=== PATIENT | female | born 1960 | race Caucasian/White ===

== ENCOUNTER → 2020-04-28 15:19 | Outpatient (CLI) | payer BC, SELFPAY ==
--- NOTE | ~2020-04-28 | MM_ITS ---
EXAMINATION: MM screening vidal BI w todd HISTORY: Screening TECHNIQUE: Craniocaudal and mediolateral oblique 3-D tomosynthesis images were obtained and synthetic 2-D images were generated. CAD analysis was submitted and interpreted. COMPARISON: Comparison to multiple prior studies sequentially, with oldest reviewed study dated 07/2015. BREAST PARENCHYMAL COMPOSITION: There are scattered areas of fibroglandular density. FINDINGS: There is no evidence of suspicious mass, calcification, or architectural distortion to sugg est malignancy in either breast. There has been no suspicious interval change. IMPRESSION: 1. No mammographic evidence of malignancy. 2. Recommend routine screening mammography in one year. BI-RADS Category 1: Negative Reviewed, dictated and finalized at location A. WORK AIDE
== END ==
PROVIDERS: PCP Internal Medicine; Visit Provider Obstetrics & Gynecology
DX: Z12.31 Encounter for screening mammogram for malignant neoplasm of breast (principal)
CPT/HCPCS: 77063; 77067

== ENCOUNTER → 2021-04-30 10:21 | Outpatient (CLI) | payer BC, SELFPAY ==
--- NOTE | ~2021-04-30 | MM_ITS ---
EXAMINATION: MM screening vidal BI w todd HISTORY: Screening TECHNIQUE: Craniocaudal and mediolateral oblique 3-D tomosynthesis images were obtained and synthetic 2-D images were generated. CAD analysis was submitted and interpreted. COMPARISON: Comparison to multiple prior studies sequentially, with oldest reviewed study dated 02/02. BREAST PARENCHYMAL COMPOSITION: There are scattered areas of fibroglandular density. FINDINGS: There is no evidence of suspicious mass, calcification, or architectural distortion to sugg est malignancy in either breast. There has been no suspicious interval change. IMPRESSION: 1. No mammographic evidence of malignancy. 2. Recommend routine screening mammography in one year. BI-RADS Category 1: Negative Reviewed, dictated and finalized at location A.
== END ==
PROVIDERS: Visit Provider Obstetrics & Gynecology
DX: Z12.31 Encounter for screening mammogram for malignant neoplasm of breast (principal)
CPT/HCPCS: 77063; 77067

== ENCOUNTER → 2021-06-08 10:58 | Outpatient (CLI) | payer BC, SELFPAY ==
--- NOTE | ~2021-06-08 | MR_ITS ---
EXAMINATION: MR brain/brain stem wo/w con EXAM DATE: 06/08/2021 11:47 INDICATION: G43.909 - Migraine, unspecified, not intractable, without.... Dizziness. TECHNIQUE: Magnetic resonance imaging (MRI) of the brain/brain stem obtained without contrast. Sagit damon T1, axial diffusion, gradient echo (T2*), T1, T2, FLAIR sequences obtained. Patient was then inj ected with 13 cc intravenous Multihance contrast. Axial and coronal postcontrast T1 weighted sequence s obtained. There is no prior study for comparison. FINDINGS: There are no areas of restricted diffusion to suggest acute infarction. There is no acute hemorrhage seen on the T2*, a hemosiderin sensitive sequence. No intraparenchymal brain mass. The ve ntricles are normal in size. There are no extra-axial collections. Flow voids are seen in the cereb ral arteries on the T2-weighted sequences consistent with their expected patency. The orbits are unr emarkable. Soft tissue is unremarkable. IMPRESSION: 1. No acute intracranial findings. Reviewed, dictated and finalized at location B. WEIGHER
[2021-06-08 11:21] LABS: Estimated Glomerular Filt Rate > 60
== END ==
PROVIDERS: PCP Internal Medicine; Visit Provider Clinical Nurse Specialist
DX: G43.909 Migraine, unspecified, not intractable, without status migrainosus (principal)
CPT/HCPCS: 70553; A9577

== ENCOUNTER 2021-07-14 13:27 | Outpatient (CLI) | payer BC, SELFPAY ==
--- NOTE | 2021-07-14 13:48 | ECHO_ITS ---
Patient Info Name: Kat Mcgill Age: 61 years : 1960 Gender: Female Ht: 65 in Wt: 145 lbs BSA: 1.75 m2 HR: 78 bpm BP: 140 / 81 mmHg Technical Quality: Good Exam Date: 07/14/2021 2:11 PM Exam Location: [facility] Patient Status: Outpatient Admit Date: 07/14/2021 Staff Ordering Physician: Rita Mart NP Capacitor Repairer: Anali Parks RDCS Attending Provider: Rita Mart NP Referring Physician: Brittny WEST; Exam Type: CA echo doppler color flow Study Info Indications - DIZZINESS AND GIDDINESS Complete two-dimensional, color flow and Doppler transthoracic echocardiogram is performed. Summary 1. Complete two-dimensional, color flow and Doppler transthoracic echocardiogram is performed. 2. Left ventricular chamber dimension is normal. 3. Left ventricular systolic function is normal, estimated at 60-65%. 4. The left ventricular diastolic function is grade I diastolic dysfunction. 5. Left atrial chamber dimension is mildly enlarged. 6. There is trace tricuspid valve regurgitation. 7. No pulmonary hypertension, estimated pulmonary arterial systolic pressure is 30 mmHg. Left Ventricle Tissue doppler is not performed. Left ventricular chamber dimension is normal. Left ventricular systolic function is normal, estimated at 60-65%. The left ventricular diastolic function is grade I diastolic dysfunction. Right Ventricle Right ventricular chamber dimension is normal. Right ventricular systolic function is normal. Left Atria Left atrial chamber dimension is mildly enlarged. Right Atria Right atrial chamber dimension is normal. Aortic Valve The aortic valve is trileaflet. There is no aortic valve stenosis. There is no aortic valve regurgitation. Pulmonic Valve There is no pulmonic regurgitation. Mitral Valve There is no mitral valve stenosis. There is no mitral valve regurgitation. Tricuspid Valve There is trace tricuspid valve regurgitation. No pulmonary hypertension, estimated pulmonary arterial systolic pressure is 30 mmHg. Pericardium/Pleural There is no pericardial effusion. Inferior Vena Cava Normal inferior vena cava with >50% collapse upon inspiration consistent with normal right atrial pressure, 5 mmHg. Aorta The aortic root size at the sinus of Valsalva is normal. Left Ventricular Outflow Tract Name Value Normal LVOT 2D LVOT Diameter 2.0 cm LVOT Doppler LVOT Peak Gradient 7 mmHg LVOT Mean Gradient 3 mmHg LVOT VTI 26 cm LVOT VTI/AV VTI Ratio 0.9 LVOT Stroke Volume 81 ml LVOT CO 15.7 l/min LVOT CI 9.0 l/min/m2 Pulmonic Valve Name Value Normal PV Doppler PV Peak Gradient
== END 2021-07-14 13:28 | disposition home or self-care (01) ==
LOC: ANHCARD 13:28
PROVIDERS: PCP Internal Medicine; Visit Provider Nurse Practitioner
DX: R42 Dizziness and giddiness (principal)
CPT/HCPCS: 93306

== ENCOUNTER 2021-09-23 08:00 | Outpatient (RCR) | payer BC, SELFPAY ==
--- NOTE | 2021-08-18 09:53 | PTOPEVAL ---
PHYSICAL THERAPY EVALUATION AND PLAN OF CARE 08-18-21 Thank you for referring Kat Mcgill to [facility] for the diagnosis of dizziness. The evaluation was completed and education provided. She no longer has any dizziness at this time. Her plan of treatment is for 0-2x/wk for 4 weeks.? Kat is to call if she has any further questions, or if dizziness returns, to call for a treatment appointment. Please review, sign, date and return this plan of care PRANEETH. I agree with and certify that the following plan of care is medically necessary. Referring Physician Date Attending Provider: Rita Mart NP Document 08/18/21 09:10 RAYO (Rec: 08/18/21 09:52 RAYO [id number]) Past Medical History Source of Past Medical History Patient Neurological History Hx Migraine Yes: about once every 3 months ; decreased Cardiovascular History Hx Cardiac Disorders No Significant History Respiratory History Hx Respiratory Disorders No Significant History Gastrointestinal History Hx Gastrointestinal Disorders No Significant History Genitourinary History Hx Genitourinary Disorders No Significant History Musculoskeletal History Hx Musculoskeletal Disorders No Significant History Endocrine History Hx Endocrine Disorders No Significant History Reproductive History Hx Reproductive Disorders No Significant History Evaluation Information Problem Diagnosis dizziness Onset Apr 2021 Prior Level of Function Activity Level (Last 3 Months) Occupation retired Activity of Daily Living Ability Independent Indoor/Home Mobility Independent Community Mobility Independent Stairs Ability Independent Functional Cognition (Planning, Shopping Independent , Taking Medications) Cooking Yes Cleaning Yes Laundry Yes Shopping Yes Driving Yes Comments Additional Prior Level of Function active lifestyle, care for Comments grandchildren--2, 7,10,11 yr old; Pain Assessment Timing of Pain Assessment Assessment Self Report Self Report Pain Level 0 Pain Score Pain Score 0: Self Report Cervical ROM Comments active cervical ROM is WNL and no pain reported Standing Position Posture Evaluation View Posterior Head/C-Spine Posture Forward Head Lumbar Spine Posture Neutral Shoulder Posture (L) Rounded,(R) Rounded Additional Posture Comments educated on correct posture of neck and shoulders in sitting, standing and with readi
--- NOTE | 2021-09-15 11:58 | PCPTNOTE ---
pt called and I discussed with her on the phone: she had dizziness and performed the To Daroff yesterday and it helped, and did once today. Discussed with her to do again today and tomorrow, if still having issues, call Fri to get an appointment to come in for further treatment. Her plan of care is up today, but will keep her chart open for any needs for the next 2 weeks.
--- NOTE | 2021-09-23 08:47 | PTOPEVAL ---
PHYSICAL THERAPY REEVALUATION AND UPDATED PLAN OF CARE 09-23-21 Refer to the clinical summary below, for a summary of her status with today's reeval. Continue PT treatment 0-2x/wk for 4 weeks, depending upon the severity of her vestibular symptoms. Thank you for referring Kat Mcgill to [facility].? Please review, sign, date and return this updated plan of care [facility]. I agree with and certify that the following plan of care is medically necessary. Referring Physician Date Attending Provider: Rita Mart NP Subjective Information Kat reports: have not had Query Text:As Reported By Patient/ any migraine headaches for the Family past 3 weeks, but when have had them, wake up in the morning with it; have been doing the exercise at home; feel little dizzy and unsteady , but not really bad; feeling OK this morning; some frustration about it coming and going and not sure why; Pain Assessment Timing of Pain Assessment Timing of Pain Assessment Assessment Self Report Self Report Pain Level 0 Pain Score Pain Score 0: Self Report Vestibular Testing Smooth Pursuits Normal [place]-Hallpike Left WNL Parveen-Hallpike Right WNL Horizontal Roll Test in Supine Left WNL Horizontal Roll Test in Supine Right WNL Vestibular Testing Comments -standing visual testin reps without s/s - gaze stabilization with head up/down and R/L -2 items ~ 24 apart, eyes only R/L and up/down, and head and eye motion R/L and up/ down - walking towards X on wall, with eyes stable- forward and backwards ~ 5 steps -convergence of eyes normal - pick item up off floor x1 - 360' turn to R and L 1x -single leg standing R and L x 30 sec - heel toe walking 20' forward and backwards - walking 50': head turn R/L and up/down; holding ball in both hands with head still/ eyes track & head and eye motions: R/L & up down - sitting: eye tracking,
--- NOTE | 2021-10-28 15:12 | PCPTNOTE ---
PHYSICAL THERAPY DISCHARGE 10-28-21 Attending Provider: Rita Mart NP Patient:Kat Mcgill Date of :1960 Kat has not returned for any further treatments since the reevaluation on 09/23/2021, therefore she will be discharged at this time. Refer to the reeval for her status at the last session. The goals were not assessed. Thank you for referring Kat to [facility]. Please review, sign, date and return this discharge summary PRANEETH. I have been updated about the patient's current status and I agree with discharge from the above service at this time. Referring Physician Date
== END 2021-10-29 10:34 | disposition home or self-care (01) ==
LOC: ANHPT 08:00
PROVIDERS: PCP Internal Medicine; Visit Provider Nurse Practitioner
DX: R42 Dizziness and giddiness (principal)
CPT/HCPCS: 97161; 97530

== ENCOUNTER → 2022-05-11 10:20 | Outpatient (CLI) | payer BC, SELFPAY ==
--- NOTE | ~2022-05-11 | DEXA_ITS ---
Bone Density Report Name: JAYLAN FELIZ Age: 62 Sex: Female Ethnicity: White Date of : 1960 Indication: postmenopausal; screening for osteoporosis; height loss; Referring Provider: NAVJOT, GRACE Study: Bone densitometry was performed. Exam Date: May 11, 2022 Accession number: [id number] Bone Density: Region BMD T-score Z-score Classification AP Spine (L1-L4) 1.027 -0.2 1.2 Normal Femoral Neck (Left) 0.786 -0.6 0.7 Normal Total Hip (Left) 0.933 -0.1 0.9 Normal Femoral Neck (Right) 0.839 -0.1 1.2 Normal Total Hip (Right) 0.934 -0.1 0.9 Normal Total Hip Mean 0.934 -0.1 0.9 Normal World Health Organization criteria for BMD impression classify patients as: Normal (T-score at or above -1.0), Osteopenia (T-score between -1.0 and -2.5), or Osteoporosis (T-score at or below -2.5). 10-year Fracture Risk: FRAX not reported because: All T-scores for Spine Total, Hip Total, Femoral Neck at or above -1.0 Previous Exams: Region Exam Age BMD T-score BMD Change BMD Change Date g/cm2 vs Baseline vs Previous AP Spine(L1-L4) 05/11/2022 62 1.027 -0.2 -0.081* -0.042* 02/02/2017 56 1.069 0.2 -0.038* -0.038* 12/03/2011 51 1.107 0.5 Total Hip(Left) 05/11/2022 62 0.933 -0.1 -0.100* -0.033* 02/02/2017 56 0.966 0.2 -0.068* -0.068* 12/03/2011 51 1.033 0.7 Total Hip(Right) 05/11/2022 62 0.934 -0.1 -0.078* -0.022 02/02/2017 56 0.956 0.1 -0.056* -0.056* 12/03/2011 51 1.012 0.6 *Denotes significance at 95% confidence level, LSC for AP Spine = 0.022 g/cm2, LSC for Total Hip = 0.027 g/cm2 Clinical Information Provided by Patient: Has used the following medications: Vitamin D Patient maximum height was 66 Menopause Age: 50 Drinks caffeinated beverages Onset of menses at age 15 Number of children 3 Impression: The patient has normal bone mass. The BMD for the AP Spine(L1-L4) decreased, changing by -0.042 since the last DXA exam. The BMD for the Total Hip(Left) decreased, changing by -0.033 since the last DXA exam. Discussion: BONE DENSITY IS ABOVE THE MINIMUM DESIRABLE LEVEL AT ALL SKELETAL SITES TESTED. This patient?s bone mineral density is above the minimum desirable level (T-score -1.0 or better) at all sites measured. The patient should follow a healthful lifestyle (good nutrition with adequate calcium and vi
--- NOTE | ~2022-05-11 | MM_ITS ---
EXAMINATION: MM screening vidal BI w todd HISTORY: Screening TECHNIQUE: Craniocaudal and mediolateral oblique 3-D tomosynthesis images were obtained and synthetic 2-D images were generated. CAD analysis was submitted and interpreted. COMPARISON: Comparison to multiple prior studies sequentially, with oldest reviewed study dated 02/02. BREAST PARENCHYMAL COMPOSITION: There are scattered areas of fibroglandular density. FINDINGS: There is no evidence of suspicious mass, calcification, or architectural distortion to sugg est malignancy in either breast. There has been no suspicious interval change. IMPRESSION: 1. No mammographic evidence of malignancy. 2. Recommend routine screening mammography in one year. BI-RADS Category 1: Negative Reviewed, dictated and finalized at location A. NING AND DEVELOPMENT PROJECT LEADER
== END ==
PROVIDERS: PCP Internal Medicine; Visit Provider Nurse Practitioner
DX: Z12.31 Encounter for screening mammogram for malignant neoplasm of breast (principal); Z78.0 Asymptomatic menopausal state
CPT/HCPCS: 77063; 77067; 77080

== ENCOUNTER 2022-07-14 10:34 | Outpatient (CLI) | payer BC, SELFPAY ==
[2022-07-14 19:14] LABS: Kit Draw Collected
== END 2022-07-14 10:35 | disposition home or self-care (01) ==
LOC: ANHGOSHLAB 10:37
PROVIDERS: PCP Internal Medicine; Visit Provider Clinical Nurse Specialist
DX: R11.0 Nausea (principal); R42 Dizziness and giddiness
CPT/HCPCS: 36415

== ENCOUNTER → 2022-07-15 09:07 | Outpatient (CLI) | payer BC, SELFPAY ==
--- NOTE | ~2022-07-15 | US_ITS ---
US right upper quadrant DATE: 07/15/2022 09:24 INDICATION: Nausea TECHNIQUE: Real-time imaging of liver, pancreas, gallbladder COMPARISON: None FINDINGS: No hepatic or pancreatic space-occupying mass lesion is detected. Normal hepatopedal portal venous flow direction. There are multiple filling defects of the gallbladder lumen, without shadowing, measuring up to 7 x 2 7 mm. These are likely concretions of sludge. No gallbladder wall thickening or pericholecystic fluid collection. The common bile duct measures 4.7 mm, within normal limits. IMPRESSION: Sludge balls in gallbladder lumen; no gallbladder wall thickening, negative sonographic M urphy's sign Reviewed, dictated and finalized at Location A. Reviewed, dictated and finalized at location B. ICE PROFESSOR IMPRESSION: Sludge balls in gallbladder lumen; no gallbladder wall thickening, negative sonographic Tejada's sign
== END ==
PROVIDERS: PCP Clinical Nurse Specialist; Visit Provider Clinical Nurse Specialist
DX: R11.0 Nausea (principal)
CPT/HCPCS: 76705

== ENCOUNTER 2022-08-23 09:42 | Outpatient (CLI) | payer BC, SELFPAY ==
--- NOTE | 2022-08-23 10:02 | ECG_ITS ---
Measurements Intervals [place] Rate: 75 P: 63 PA: 135 QRS: 33 QRSD: 82 T: 45 QT: 383 QTc: 429 Interpretive Statements SINUS RHYTHM WITH OCCASIONAL SUPRAVENTRICULAR PREMATURE COMPLEXES NO PREVIOUS ECG AVAILABLE FOR COMPARISON Electronically Signed On 08-23-2022 11:38:51 EMERGENCY MEDICINE MEDICAL DIRECTOR by Sunshine Clark M.D.
[2022-08-23 12:14] LABS: Amylase 113 U/L (30-110); Lipase 297 U/L (23-300)
== END 2022-08-23 09:43 | disposition home or self-care (01) ==
PROVIDERS: PCP Clinical Nurse Specialist; Visit Provider Surgery
DX: Z01.818 Encounter for other preprocedural examination (principal); K80.10 Calculus of gallbladder with chronic cholecystitis without obstruction
CPT/HCPCS: 36415; 82150; 83690; 86850; 86900; 86901; 93005

== ENCOUNTER 2022-08-29 01:03 | Day surgery (SDC) | payer BC, SELFPAY ==
[2022-08-19 09:41] VITALS: BMI 24.3
--- NOTE | 2022-08-19 09:45 | PC.NURSE ---
Report to the Outpatient Waiting Room, entrance under the green pavilion located off [facility], at time 8:00 on date 08/29/22. Planned Procedure Time: 10:00. Time changes happen often and if your time is changed the preop area will call you the afternoon before. - You and your visitor will be asked to self-screen and do not enter if you have any COVID symptoms. - Only one visitor is requested with a max of two and NO children visitors are allowed at this time. - The patient visitor may be requested to leave or wait in car when not with patient due to distancing restrictions. - A mask is optional within the hospital at this time. Patients may have clear liquids (water, carbonated beverages, clear teas, apple juice) until 3 hours prior to surgery (7:00) with a maximum of 20 ounces. - No food from midnight until time of surgery Take the following medications with a SIP of water the morning of surgery: NONE DO NOT STOP ANY OF YOUR OTHER PRESCRIPTION MEDICATIONS PRIOR TO SURGERY EXCEPT THE FOLLOWING Medications to discontinue per physician: VITAMIN Date to take last dose: 08/25/22 Please no make-up, nail chinese, hairspray, perfume, deodorant, or body powder the day of surgery. No jewelry (including any body piercings) or valuables the day of surgery, leave them at home. Please take a shower or bath the night before, or the morning of, surgery with an antibacterial soap (HIBICLENS). Wear comfortable, loose fitting clothing. - Jewelry must be removed prior to entering the operating room. Rings and piercings that are not removed may be cut off. - The hospital will not accept responsibility for valuables. - Please leave all valuables, including medications, at home the day of surgery. If you are going home after surgery, a licensed [facility] driver must drive you home. - NO public transportation without another adult if you receive anesthesia. - We recommend that an adult stay with you for 24 hours following discharge. - We also recommend that you do not drive, make important decision, drink alcoholic beverages, or take any drugs that were not prescribed by your health care provider for at least 24 hours after your discharge time. Follow any additional instructions given to you from your surgeon. If you or anyone in your household have experienced Covid symptoms in the past week, please notify your surgeon or the nurse liaison at the phone number below for possible testing. Telephone instructions given to PT - JAYLAN FELIZ and asked if any additional questions and then verbalized understanding. Patient advised to call surgeon office or pre surgery nurse liaison [phone] if any additional questions.
[2022-08-29] VITALS (11 sets, daily range): BP systolic 129–151; BP diastolic 64–82; PULSE 61–94; RESP 16–18; TEMP 36.3–37.3; O2SAT 99–100
--- NOTE | 2022-08-29 07:19 | PM.IMHP ---
H&P: HPI History of Present Illness Date/Time: 08/29/22 07:19 Chief Complaint: abdominal pain Narrative: Kat is a 62 y/o female who presents to the office at the request of Juliana HIGUERA for evaluation of heartburn with associated nausea. She states she has been experiencing these symptoms since the early June. RUQ abdominal ultrasound was completed on 07/15/22 and revealed sludge balls in gallbladder lumen; no gallbladder wall thickening, negative sonographic Tejada's sign. Patient was started on Omeprazole 20mg and she states symptoms are improved using this medication. She denies any abdominal pain. She denies any constipation or diarrhea. She does report a family history of gallbladder disease. Review of Systems Review of Systems: All systems reviewed & are unremarkable except as noted in HPI and below PMFSH Past Medical History Medical History Bleeding hemorrhoid Dizziness Elevated glucose level Fatigue Migraine Screening for colon cancer Screening for lipoid disorders Screening for metabolic disorder Vitamin D deficiency Surgical History Surgical History H/O: Family History Family History Father Diabetes mellitus Hypertension Mother Hypertension Depression Grandparent Carcinoma of colon Social History Social History Smoking status: Never smoker Alcohol intake: never Substance use: never Substance use type: does not use Lack of Transportation: No Lack of Food: Never True Current Housing: I Have Housing Concerned About Future Housing: No Difficulty Paying Gas/Electric Bills: No Difficulty Paying for Meds: No Currently Unemployed: No Education: High School Diploma/GED Difficulty w/ Childcare or Family Care: No Living arrangements: with family Spiritual care concerns: No Meds Home Medications and Allergies Home Medications Medication Instructions Recorded Confirmed Type sumatriptan succinate 50 mg tablet 50 mg PO ONCE 12/09/20 08/19/22 History (Imitrex) ergocalciferol (vitamin D2) 50 mcg 50 mcg PO DAILY 02/22/22 08/19/22 History (2,000 unit) capsule omeprazole 20 mg capsule,delayed 20 mg PO DAILY #60 caps 07/14/22 08/19/22 Rx release ondansetron 4 mg disintegrating 4 mg PO Q6H PRN nausea and 07/14/22 08/19/22 Rx tablet vomiting #30 tabs Allergies Allergy/AdvReac Type Severity Reaction Status Date / Time BUFFERED ASPRIN Allergy Mild HIVES Uncoded 08/19/22 09:40 Exam Const: General: cooperative, healthy appearing, comfortable and no acute distress Resp: Auscultation: clear to auscultation bilaterally Cardio: Rate: regular rate Rhythm: regular rhythm GI: GI Palp: Yes abdominal tenderness, Yes Soft to palpation, No Tenderness to palpation present (GI) and No Guarding due to palpation present (GI) Assessment and Plan Assessment and plan (1) CCC (chronic calculous cholecystitis): Code(s): K80.10 - Calculus of gallbladder with chronic cholecystitis without obstruction Status: Acute Assessment and Plan: will setup for robotic assisted cholecystectomy
[2022-08-29] MEDS: ACETAMINOPHEN 500 MG TABLET 1000 MG PO (08:35)
[2022-08-29] MEDS: INDOCYANINE GREEN 25 MG VIAL 3.75 MG IV PUSH (08:40)
[2022-08-29] MEDS: LACTATED RINGERS 1,000 ML 30 ML IV CONT ×2 (08:40→10:27)
[2022-08-29] MEDS: KETOROLAC 15 MG/ML VIAL (*BKC) IV PUSH (08:45)
--- NOTE | 2022-08-29 08:52 | WPDHPUPDATE1 ---
History and Physical Update Update Date/Time: 08/29/22 08:52 History and Physical has been reviewed, including an updated exam of the patient. There are NO changes in the patient's condition. Risks, benefits, and alternatives have been discussed and questions answered. Patient agrees to proceed with procedure.
--- NOTE | 2022-08-29 09:08 | WPDANESEPPF ---
Anes - Initial Pre Proc Eval Procedure: Operation Date: 08/29/22 10:00 Proposed Procedures p Robotic Assisted Laparoscopic Cholecystectomy - Ernestina Pardo MD Date/Time: 08/29/22 09:08 Surgeon: Ernestina Pardo MD Pre Op Diagnosis: chronic calculous cholecystitis Patient Data Age: 62 Gender: F Height: 1.65 m Weight: 65.7 kg Last Vital Signs Temp 99.2 F 08/29/22 08:00 Pulse 81 08/29/22 08:00 Resp 18 08/29/22 08:00 BP 138/77 08/29/22 08:00 Pulse Ox 100 08/29/22 08:00 O2 Del Method Room Air 08/29/22 08:00 Allergies Allergy/AdvReac Type Severity Reaction Status Date / Time BUFFERED ASPRIN Allergy Mild HIVES Uncoded 08/29/22 08:09 Home Medications Medication Instructions Recorded Confirmed Type sumatriptan succinate 50 mg tablet 50 mg PO ONCE 12/09/20 08/29/22 History (Imitrex) ergocalciferol (vitamin D2) 50 mcg 50 mcg PO DAILY 02/22/22 08/29/22 History (2,000 unit) capsule omeprazole 20 mg capsule,delayed 20 mg PO DAILY #60 caps 07/14/22 08/29/22 Rx release ondansetron 4 mg disintegrating 4 mg PO Q6H PRN nausea and 07/14/22 08/29/22 Rx tablet vomiting #30 tabs Patient hx anesthesia problems: none Family hx anesthesia problems: none Results Review: All pre-operative results and documents have been reviewed as part of the pre-operative evaluation. [facility] Past Medical History Medical History Bleeding hemorrhoid Dizziness Elevated glucose level Fatigue Migraine Screening for colon cancer Screening for lipoid disorders Screening for metabolic disorder Vitamin D deficiency Surgical History Surgical History H/O: Family History Family History Father Diabetes mellitus Hypertension Mother Hypertension Depression Grandparent Carcinoma of colon Social History Social History Smoking status: Never smoker Alcohol intake: never Substance use: never Substance use type: does not use Lack of Transportation: No Lack of Food: Never True Current Housing: I Have Housing Concerned About Future Housing: No Difficulty Paying Gas/Electric Bills: No Difficulty Paying for Meds: No Currently Unemployed: No Education: High School Diploma/GED Difficulty w/ Childcare or Family Care: No Living arrangements: with family Spiritual care concerns: No Anes - Eval Final PreProcedure Day of Procedure 08/29/22 09:08 Patient weight: normal Heart: regular rate and rhythm Lungs: clear to auscultation Airway: Mallampati scale class II Neurological: alert and oriented Last oral intake: >/= 8 hours ASA classification: II Emergent: no Anesthetic plan: proceed Anesthesia type and monitoring: general ETT and standard monitoring Results Review: All pre-operative results and documents have been reviewed as part of the pre-operative evaluation. Informed Consent: The patient's anesthetic plan and its attendant risks and benefits were discussed with the patient/family/POA. Questions were solicited and answers provided to the satisfaction of the patient/family/POA.
[2022-08-29] MEDS: ceFAZolin 2 GM/D5W 50 ML 2 GM/50 ML BAG IVPB (09:13)
[2022-08-29] MEDS: BUPIVACAINE/EPINEPHRINE 0.5% 50 ML VIAL 40 ML INFILTRATE (09:54)
[2022-08-29] MEDS: fentaNYL CITRATE INJ (*CRX) 100 MCG/2 ML VIAL 25 MCG IV PUSH ×6 (10:41→11:15)
--- NOTE | 2022-08-29 10:46 | W.PM.PROC2 ---
Procedure Note - Detailed Date of Procedure 08/29/22 Pre-op Diagnosis chronic calculous cholecystitis Post-op Diagnosis Same Procedure Performed Robotic assisted cholecystectomy Surgeon Ernestina Pardo MD Anesthesia General Indications 62-year-old female presenting to the office complaining postop upper abdominal pain, nausea vomiting. Workup, including imaging, significant for chronic cholelithiasis, cholecystitis. Findings moderate cholecystitis Description of Procedure The patient was taken to the operating room and placed in the supine position. After adequate induction of general anesthesia, the patient was prepped and draped in the normal sterile fashion. A time-out was then done to verify the patient's identity, as well as the procedure being performed. I began by making a 8 mm incision in the periumbilical region. A Veress needle was then placed in the peritoneal cavity and CO2 gas was insufflated. After adequate pneumoperitoneum was achieved, the Veress needle was removed and a 8 mm Optiview trocar was placed under direct visualization. Once into the abdominal cavity, the introducer was removed and the laparoscope was placed through this trocar site. Under direct visualization, I placed a further 8 mm port in the left mid abdomen and 2 additional 8 mm ports in the right mid abdomen. The robot was then docked to these ports sites. I then went to the console. The gallbladder was then identified and noted to be moderately inflamed. I was able to place a grasper at the dome of the gallbladder and this was retracted up and over the liver. A 2nd retractor was used to grasp the infundibulum and retracted laterally. This allowed visualization and dissection of the triangle of Calot. There were some omental adhesions to the gallbladder and these were taken down with the cautery. I then began dissection around the triangle Calot. I first identified the cystic duct, I was able to visualize the entirety of the duct from its proximal insertion into the gallbladder to its distal junction with the common hepatic/common bile duct junction. I did use the firefly visualization at this point to confirm the anatomy. The proximal cystic duct was then further skeletonized, clipped, and transected. Next I visualized the cystic artery. Again the structure was skeletonized, clipped, and transected. I then again used firefly to confirm anatomy and no aberrant anatomy was noted. I then used the Bovie cautery to take down the peritoneal attachments of the gallbladder off the liver bed. Once the gallbladder specimen was completely detached, an Endo pouch was placed through the left sided 8 mm port site and the gallbladder specimen was placed in the endo-pouch and subsequently removed. I then re-examined the right upper quadrant. Hemostasis was noted in the liver bed and the clips were noted to be in good position on both the duct and the artery. No other pathology was seen in the right upper quadrant. All instruments were then removed and the robot was undocked. I then closed the 12 incision at the fascial level using a Luciano cone and 0 Vicryl suture under direct visualization. The abdomen was then desufflated and all ports were removed. All port sites were then closed with 4-0 Monocryl subcuticular suture. Dermabond was placed on each was wound. The patient tolerated the procedure well and was extubated in the operating room postop. The patient will now be transferred to the recovery room in stable condition. Estimated Blood Loss 5 Drains No Packing No Pathology Yes Complications No immediate complications Condition Stable Disposition PACU [facility] Billing Surgery - Charge Forward: Surgery Billing
[2022-08-29] MEDS: oxyCODONE HCL (*CRX) 5 MG TAB IR PO (12:40)
== END 2022-08-29 13:20 | disposition home or self-care (01) ==
PROVIDERS: PCP Clinical Nurse Specialist; Visit Provider Surgery
PROC: 0FT44ZZ Resection of Gallbladder, Percutaneous Endoscopic Approach (ICD-10-PCS; CPT 47562; principal; 2022-08-29 10:00)
DX: K80.10 Calculus of gallbladder with chronic cholecystitis without obstruction (principal); E55.9 Vitamin D deficiency, unspecified
CPT/HCPCS: 47562; 88304; A9270; J0690; J1100; J1885; J2250; J2405; J2704; J3010; J7120

== ENCOUNTER 2023-01-26 02:31 | Day surgery (SDC) | payer BC, SELFPAY ==
[2023-01-16 13:38] VITALS: BMI 24.2
--- NOTE | 2023-01-25 17:19 | PM.HPGS ---
History of Present Illness History of Present Illness Consent: Risks, benefits, and alternatives have been discussed and questions answered. Patient agrees to proceed with procedure. Chief complaint: neoplasm screening and hx of colon polyps Narrative: Kat Mcgill is a 62 year old female For for colon cancer screening. She has a history of polyps Review of Systems Review of Systems: All systems reviewed & are unremarkable except as noted in HPI and below PMFSH Past Medical History Medical History Bleeding hemorrhoid Dizziness Elevated glucose level Fatigue Migraine Screening for colon cancer Screening for lipoid disorders Screening for metabolic disorder Vitamin D deficiency Surgical History Surgical History H/O: S/P cholecystectomy Robotic assisted cholecystectomy 08/29/22 Family History Family History Father Diabetes mellitus Hypertension Mother Hypertension Depression Grandparent Carcinoma of colon Social History Social History Smoking status: Never smoker Tobacco type: cigarettes Alcohol intake: never Substance use: never Substance use type: does not use Lack of Transportation: No Lack of Food: Never True Current Housing: I Have Housing Concerned About Future Housing: No Difficulty Paying Gas/Electric Bills: No Difficulty Paying for Meds: No Currently Unemployed: No Education: High School Diploma/GED Difficulty w/ Childcare or Family Care: No Living arrangements: with family Spiritual care concerns: No Meds Home Medications and Allergies Home Medications Medication Instructions Recorded Confirmed Type sumatriptan succinate 50 mg tablet 50 mg PO DIRECTED 12/09/20 01/16/23 History (Imitrex) ergocalciferol (vitamin D2) 50 mcg 50 mcg PO DAILY 02/22/22 01/16/23 History (2,000 unit) capsule pimecrolimus 1 % topical cream 1 applic topical 2XW 01/16/23 01/16/23 History (Elidel) Allergies Allergy/AdvReac Type Severity Reaction Status Date / Time BUFFERED ASPRIN Allergy Mild HIVES Uncoded 01/26/23 06:18 Exam Const: General: alert Orientation/consciousness: patient oriented x3 Resp: Auscultation: clear to auscultation bilaterally Cardio: Rhythm: regular rhythm GI: GI Palp: Yes Soft to palpation and No Tenderness to palpation present (GI) Neuro: General: patient oriented x3 Assessment and Plan Assessment and plan (1) Colon cancer screening: Code(s): Z12.11 - Encounter for screening for malignant neoplasm of colon Status: Acute Assessment and Plan: Colonoscopy with possible biopsy or polypectomy or cautery or injection of substances.
[2023-01-26 06:19] VITALS: BP 141/88; PULSE 74; RESP 18; TEMP 36.1; O2SAT 100
[2023-01-26] MEDS: LACTATED RINGERS 1,000 ML 150 ML IV CONT (06:33)
--- NOTE | 2023-01-26 07:16 | P.PNAN_ITS ---
Anes - Initial Pre Proc Eval Procedure: Operation Date: 01/26/23 07:30 Proposed Procedures p Colonoscopy - Cong Quiroz MD Date/Time: 01/26/23 07:16 Surgeon: Cong Quiroz MD Pre Op Diagnosis: neoplasm screening and hx of colon polyps Patient Data Age: 62 Gender: F Height: 1.65 m Weight: 65.5 kg Last Vital Signs Temp 97 F L 01/26/23 06:19 Pulse 74 01/26/23 06:19 Resp 18 01/26/23 06:19 BP 141/88 H 01/26/23 06:19 Pulse Ox 100 01/26/23 06:19 O2 Del Method Room Air 01/26/23 06:19 Allergies Allergy/AdvReac Type Severity Reaction Status Date / Time BUFFERED ASPRIN Allergy Mild HIVES Uncoded 01/26/23 06:18 Home Medications Medication Instructions Recorded Confirmed Type sumatriptan succinate 50 mg tablet 50 mg PO DIRECTED 12/09/20 01/16/23 History (Imitrex) ergocalciferol (vitamin D2) 50 mcg 50 mcg PO DAILY 02/22/22 01/16/23 History (2,000 unit) capsule pimecrolimus 1 % topical cream 1 applic topical 2XW 01/16/23 01/16/23 History (Elidel) Patient hx anesthesia problems: none Family hx anesthesia problems: none Results Review: All pre-operative results and documents have been reviewed as part of the pre- operative evaluation. [facility] Past Medical History Medical History Bleeding hemorrhoid Dizziness Elevated glucose level Fatigue Migraine Screening for colon cancer Screening for lipoid disorders Screening for metabolic disorder Vitamin D deficiency Surgical History Surgical History H/O: S/P cholecystectomy Robotic assisted cholecystectomy 08/29/22 Family History Family History Father Diabetes mellitus Hypertension Mother Hypertension Depression Grandparent Carcinoma of colon Social History Social History Smoking status: Never smoker Tobacco type: cigarettes Alcohol intake: never Substance use: never Substance use type: does not use Lack of Transportation: No Lack of Food: Never True Current Housing: I Have Housing Concerned About Future Housing: No Difficulty Paying Gas/Electric Bills: No Difficulty Paying for Meds: No Currently Unemployed: No Education: High School Diploma/GED Difficulty w/ Childcare or Family Care: No Living arrangements: with family Spiritual care concerns: No Anes - Eval Final PreProcedure Day of Procedure 01/26/23 07:16 Patient weight: normal Heart: regular rate and rhythm Lungs: clear to auscultation Neurological: alert and oriented Last oral intake: >/= 8 hours Emergent: no Anesthetic plan: proceed Results Review: All pre-operative results and documents have been reviewed as part of the pre- operative evaluation. Informed Consent: The patient's anesthetic plan and its attendant risks and benefits were discussed with the patient/family/POA. Questions were solicited and answers provided to the satisfaction of the patient/family/POA.
[2023-01-26 07:48] VITALS: BP 103/61; PULSE 66; RESP 16; O2SAT 100
[2023-01-26 07:58] VITALS: BP 100/69; PULSE 72; RESP 18; O2SAT 100
[2023-01-26 08:08] VITALS: BP 110/69; PULSE 70; RESP 18; O2SAT 100
== END 2023-01-26 08:17 | disposition home or self-care (01) ==
PROVIDERS: PCP Clinical Nurse Specialist; Visit Provider Internal Medicine Gastroenterology
PROC: 0DJD8ZZ Inspection of Lower Intestinal Tract, Via Natural or Artificial Opening Endoscopic (ICD-10-PCS; CPT 45378; principal; 2023-01-26 07:30)
DX: Z12.11 Encounter for screening for malignant neoplasm of colon (principal); Z86.010 Personal history of colon polyps; E55.9 Vitamin D deficiency, unspecified
CPT/HCPCS: 45378; J2704; J7120

== ENCOUNTER 2023-05-10 07:51 | Outpatient (CLI) | payer BC, SELFPAY | END 2023-05-10 07:52 | disposition home or self-care (01) | LOC: ANHAUDASC 07:52 | PROVIDERS: PCP Internal Medicine; Visit Provider Clinical Nurse Specialist | DX: H93.19 Tinnitus, unspecified ear (principal); H90.3 Sensorineural hearing loss, bilateral | CPT/HCPCS: 92557; 92567 ==

== ENCOUNTER → 2023-05-16 10:29 | Outpatient (CLI) | payer BC, SELFPAY ==
--- NOTE | ~2023-05-16 | MM_ITS ---
EXAMINATION: MM screening [facility] w todd HISTORY: Screening mammogram TECHNIQUE: Craniocaudal and mediolateral oblique 3-D tomosynthesis images were obtained and synthetic 2-D images were generated. CAD analysis was submitted and interpreted. COMPARISON: 05/11/2022, 04/30/2021, 04/28/2020 bilateral screening mammogram examinations BREAST PARENCHYMAL COMPOSITION: There are scattered areas of fibroglandular density. FINDINGS: There is no evidence of suspicious mass, calcification, or architectural distortion to sugg est malignancy in either breast. There has been no suspicious interval change. IMPRESSION: 1. No mammographic evidence of malignancy. 2. Recommend routine screening mammography in one year. BI-RADS Category 1: Negative Reviewed, dictated and finalized at location A. CONTROL TECHNICIAN B
== END ==
PROVIDERS: PCP Advanced Practice Midwife; Visit Provider Advanced Practice Midwife
DX: Z12.31 Encounter for screening mammogram for malignant neoplasm of breast (principal)
CPT/HCPCS: 77063; 77067

== ENCOUNTER 2024-07-23 15:14 | Outpatient (CLI) | payer BC, SELFPAY ==
--- NOTE | ~2024-07-23 | MM_ITS ---
EXAMINATION: MM screening [facility] BI w todd HISTORY: Screening TECHNIQUE: Craniocaudal and mediolateral oblique 3-D tomosynthesis images were obtained and synthetic 2-D images were generated. CAD analysis was submitted and interpreted. COMPARISON: Comparison to multiple prior studies sequentially, with oldest reviewed study dated 02/14. BREAST PARENCHYMAL COMPOSITION: Not dense: There are scattered areas of fibroglandular density. FINDINGS: There is no evidence of suspicious mass, calcification, or architectural distortion to sugg est malignancy in either breast. There has been no suspicious interval change. IMPRESSION: 1. No mammographic evidence of malignancy. 2. Recommend routine screening mammography in one year. BI-RADS Category 1: Negative Reviewed, dictated and finalized at location A. [employer]UCATION TEACHER
== END 2024-07-23 15:15 | disposition home or self-care (01) ==
LOC: MICIMG 15:15
PROVIDERS: PCP Clinical Nurse Specialist; Visit Provider Nurse Practitioner
DX: Z12.31 Encounter for screening mammogram for malignant neoplasm of breast (principal)
CPT/HCPCS: 77063; 77067

== ENCOUNTER 2025-04-14 09:24 | Outpatient (CLI) | payer BC, SELFPAY ==
--- NOTE | ~2025-04-14 | DEXA_ITS ---
Bone Density Report Name: JAYLAN FELIZ Age: 65 Sex: Female Ethnicity: White Date of : 1960 Indication: postmenopausal; screening for osteoporosis; height loss; cancer; Referring Provider: NAVJOT, GRACE Study: Bone densitometry was performed. Exam Date: April 14, 2025 Accession number: [id number] Bone Density: Region BMD T-score Z-score Classification AP Spine(L1-L4) 1.000 -0.4 1.2 Normal Femoral Neck (Left) 0.738 -1.0 0.4 Normal Total Hip (Left) 0.852 -0.7 0.4 Normal Femoral Neck (Right) 0.811 -0.3 1.1 Normal Total Hip (Right) 0.902 -0.3 0.8 Normal Total Hip Mean 0.877 -0.5 0.6 Normal World Health Organization criteria for BMD impression classify patients as: Normal (T-score at or above -1.0), Osteopenia (T-score between -1.0 and -2.5), or Osteoporosis (T-score at or below -2.5). 10-year Fracture Risk: FRAX not reported because: All T-scores for Spine Total, Hip Total, Femoral Neck at or above -1.0 Previous Exams: -- Region Exam Age BMD T-score BMD Change BMD Change Date g/cm2 vs Baseline vs Previous -- AP Spine (L1-L4) 04/14/2025 65 1.000 -0.4 -9.7%* -2.6%* 05/11/2022 62 1.027 -0.2 -7.3%* -3.9%* 02/02/2017 56 1.069 0.2 -3.5%* -3.5%* 12/03/2011 51 1.107 0.5 Total Hip(Left) 04/14/2025 65 0.852 -0.7 -17.5%* -8.7%* 05/11/2022 62 0.933 -0.1 -9.7%* -3.4%* 02/02/2017 56 0.966 0.2 -6.5%* -6.5%* 12/03/2011 51 1.033 0.7 Total Hip(Right) 04/14/2025 65 0.902 -0.3 -10.9%* -3.4%* 05/11/2022 62 0.934 -0.1 -7.7%* -2.3% 02/02/2017 56 0.956 0.1 -5.6%* -5.6%* 12/03/2011 51 1.012 0.6 -- *Denotes significance at 95% confidence level, LSC for AP Spine = 0.022 g/cm2, LSC for Total Hip = 0.027 g/cm2 Clinical Information Provided by Patient: Has used the following medications: Vitamin D Has the following medical conditions: Cancer, basal cell skin cancer Patient maximum height was 66 Menopause Age: 50 Drinks caffeinated beverages Onset of menses at age 15 Number of children 2 Impression: The patient has normal bone mass. The BMD for the AP Spine (L1-L4) decreased, changing by -2.6% since the last DXA exam. The BMD for the Total Hip(Left) decreased, changing by -8.7% since the last DXA exam. The BMD for the Total Hip(Right) decreased, changing by -3.4% since the last DXA exam. Discussion: BONE DENSITY IS ABOVE THE MINIMUM DESIRABLE LEVEL AT ALL SKELETAL SITES TESTED. This patient?s bone mineral density is above the minimum desirable level (T-score -1.0 or better) at all sites measured. The patient should follow a healthful lifestyle (good nutrition with adequate calcium and vitamin D, and appropriate weight-bearing exercise). Follow-Up: Consider repeating this study in 3 to 4 years to reassess this patient's status, or sooner if there is some new clinical indication. Reported by: JARED on 04/14/2025 9:44:00 AM. Reviewed, dictated and finalized at location A.
== END 2025-04-14 09:25 | disposition home or self-care (01) ==
LOC: MICIMG 09:25
PROVIDERS: PCP Clinical Nurse Specialist; Visit Provider Nurse Practitioner
DX: Z78.0 Asymptomatic menopausal state (principal); Z13.820 Encounter for screening for osteoporosis
CPT/HCPCS: 77080